=== PATIENT | female | born 1950 | race Caucasian/White ===

== ENCOUNTER 2020-03-05 06:50 | Day surgery (SDC) | payer MEDICARE ==
[~2020-03-05] VITALS: Ht 152.4 cm; Wt 71.0 kg
[2020-03-05] MEDS ORDERED: LIDOCAINE-MPF 1%, 2ML ONE (07:24)
[2020-03-05] MEDS ORDERED: CHLORHEXIDINE 15 ML UDC ONE (07:24)
[2020-03-05] MEDS ORDERED: LACTATED RINGERS 1,000 ML IV SCH (07:44)
[2020-03-05] MEDS ORDERED: ACETAMINOPHEN 500 MG TABLET PO STA (07:46)
[2020-03-05] MEDS ORDERED: CHLORHEXIDINE 15 ML UDC MM ONE (08:00)
[2020-03-05] MEDS ORDERED: LIDOCAINE-MPF 1%, 2ML INFIL ONE (08:00)
[2020-03-05 08:18] VITALS: BP 155/85
[2020-03-05] MEDS ORDERED: EZET10TA70 PO (08:18)
[2020-03-05] MEDS ORDERED: METO-99 PO (08:18)
[2020-03-05] MEDS ORDERED: CHOL10003 PO (08:18)
[2020-03-05] MEDS ORDERED: TIOT18CA INH (08:18)
[2020-03-05] MEDS ORDERED: GEMF600T8 PO (08:18)
[2020-03-05] MEDS ORDERED: NITR0.4T41 SL (08:18)
[2020-03-05] MEDS ORDERED: SPIR25TA5 PO (08:18)
[2020-03-05] MEDS ORDERED: AMLO-150 PO (08:18)
[2020-03-05] MEDS ORDERED: MAGN400T26 PO (08:18)
[2020-03-05] MEDS ORDERED: HYDR500C3 PO (08:18)
[2020-03-05] MEDS ORDERED: CLOP75TA52 PO (08:18)
[2020-03-05] MEDS ORDERED: LOSA1TAB25 PO (08:18)
[2020-03-05] MEDS ORDERED: morphine SULFATE 10 MG/ML, 1ML ONE (08:22)
[2020-03-05] MEDS ORDERED: EPHEDRINE 50 MG/ML, 1ML IVPush PRN (08:30)
[2020-03-05] MEDS ORDERED: ONDANSETRON 2MG/ML, 2ML IVPush PRN (08:30)
[2020-03-05] MEDS ORDERED: morphine SULFATE 10 MG/ML, 1ML IVPush PRN (08:30)
[2020-03-05] MEDS ORDERED: LABETALOL 5MG/ML, 20ML IV PRN (08:30)
[2020-03-05] MEDS ORDERED: hydrALAzine 20 MG/ML, 1ML IV PRN (08:30)
[2020-03-05] MEDS ORDERED: PROMETHAZINE 25 MG/ML, 1ML IVPush PRN (08:30)
[2020-03-05] MEDS ORDERED: EPHEDRINE 50 MG/ML, 1ML ONE (08:50)
[2020-03-05] MEDS ORDERED: DEXAMETHASONE 4 MG/ML, 1ML ONE (08:50)
[2020-03-05] MEDS ORDERED: CEFAZOLIN 1,000 MG ONE (08:50)
[2020-03-05] MEDS ORDERED: ONDANSETRON 2MG/ML, 2ML ONE (08:50)
[2020-03-05] MEDS ORDERED: PROPOFOL 10 MG/ML, 20ML ONE (08:50)
[2020-03-05 09:22] LABS: ALANINE AMINOTRANSFERASE 14 U/L (12-78); ALBUMIN 3.5 g/dL (3.4-5.0); ANION GAP 7 mmol/L (5-15); CALCIUM 8.8 mg/dL (8.5-10.1); CHLORIDE 113 mmol/L (98-107); CREATININE 1.03 mg/dL (0.55-1.02)
[2020-03-05 09:24] LABS: ALKALINE PHOSPHATASE 84 U/L (45-117); BILIRUBIN,TOTAL 0.3 mg/dL (0.2-1.0); TOTAL PROTEIN 7.4 g/dL (6.4-8.2)
[2020-03-05] MEDS ORDERED: FENTANYL PF 100 MCG/2ML ONE (10:25)
[2020-03-05] MEDS ORDERED: OXYcodone 5 MG/5 ML ORAL.SOL UDC ONE (10:25)
[2020-03-05] MEDS ORDERED: MORPHINE SULFATE 4 MG/ML, 1ML ONE (10:28)
[2020-03-05] MEDS ORDERED: ONDANSETRON ODT 4 MG ONE (13:12)
[2020-03-05] MEDS ORDERED: ONDANSETRON ODT 4 MG PO ONE (13:30)
== END 2020-03-05 13:25 | disposition home or self-care (01) ==
LOC: OUT 06:50
PROVIDERS: ATTEND Orthopaedic Surgery
DX: T84.84XA Pain due to internal orthopedic prosthetic devices, implants and grafts, initial encounter (principal); Y83.8 Other surgical procedures as the cause of abnormal reaction of the patient, or of later complication, without mention of misadventure at the time of the procedure; I12.9 Hypertensive chronic kidney disease with stage 1 through stage 4 chronic kidney disease, or unspecified chronic kidney disease; N18.3 Chronic kidney disease, stage 3 (moderate); I25.10 Atherosclerotic heart disease of native coronary artery without angina pectoris; J44.9 Chronic obstructive pulmonary disease, unspecified; Z88.5 Allergy status to narcotic agent; Z87.891 Personal history of nicotine dependence; Z79.2 Long term (current) use of antibiotics; Z79.899 Other long term (current) drug therapy; Z98.890 Other specified postprocedural states
CPT/HCPCS: 20245; 20680; 36415; 73600; 76000; 80053; 82962; 87635; 88307; 88311; 93005; J0690; J1100; J2270; J2405; J2704; J7120; Q0162